=== PATIENT | male | born 1960 | race Caucasian/White ===

== ENCOUNTER 2018-05-22 20:18 | Emergency (ER) | payer MEDICARE, OTHER ==
[~2018-05-22] VITALS: Ht 167.6 cm; Wt 63.0 kg
[~2018-05-22 20:18] MED LIST: CLIN150C8 PO; CYCL-1 PO; NO HOME MEDS
[2018-05-22 21:00] LABS: BASOPHILS # (AUTO) 0.1 X10'3 (0-0.2); BASOPHILS % (AUTO) 0.8 % (0-1); EOSINOPHILS # (AUTO) 0.1 X10'3 (0-0.9); EOSINOPHILS % (AUTO) 1.6 % (0-6); HEMATOCRIT 38.5 % (42.0-52.0); HEMOGLOBIN 12.2 g/dl (14.0-17.9); LYMPHOCYTES # (AUTO) 2.5 X10'3 (1.1-4.8); LYMPHOCYTES % (AUTO) 32.1 % (21-51); MEAN CORPUSCULAR HEMOGLOBIN 20.5 PG (27.0-31.0); MEAN CORPUSCULAR HGB CONC 31.6 % (33.0-36.5); MEAN CORPUSCULAR VOLUME 64.8 FL (78-98); MEAN PLATELET VOLUME 7.9 FL (7.4-10.4); MONOCYTES # (AUTO) 0.5 X10'3 (0-0.9); MONOCYTES % (AUTO) 6.2 % (2-12); NEUTROPHILS # (AUTO) 4.7 X10'3 (1.8-7.7); NEUTROPHILS % (AUTO) 59.3 % (42-75); PLATELET COUNT 166 X10'3 (140-440); RED BLOOD COUNT 5.94 X10'6 (4.70-6.10); RED CELL DISTRIBUTION WIDTH 13.7 % (11.5-14.5); WHITE BLOOD COUNT 7.9 X10'3 (4.5-11.0)
[2018-05-22 21:06] LABS: PARTIAL THROMBOPLASTIN TIME 26 SECONDS (22-32)
[2018-05-22 21:10] LABS: ALANINE AMINOTRANSFERASE 46 U/L (12-78); ALBUMIN 3.4 G/DL (3.4-5.0); ALKALINE PHOSPHATASE 97 IU/L (46-116); ANION GAP 8 (8-16); ASPARTATE AMINO TRANSFERASE 23 U/L (10-37); BILIRUBIN,TOTAL 0.3 MG/DL (0.1-1.0); BLOOD UREA NITROGEN 14 MG/DL (7-18); BUN/CREATININE RATIO 14.4 (5.4-32.0); CALCIUM 8.5 MG/DL (8.5-10.1); CHLORIDE 102 MMOL/L (99-107); CREATININE 0.97 MG/DL (0.60-1.10); GLUCOSE 90 MG/DL (70-104); POTASSIUM 4.1 MMOL/L (3.5-5.1); SODIUM 139 MMOL/L (135-145); TOTAL CARBON DIOXIDE 28.6 MMOL/L (24-32); TOTAL PROTEIN 6.8 G/DL (6.4-8.2); eGFR 79 ML/MIN
[2018-05-22 21:16] LABS: ETHANOL < 0.010 GM/DL (0.0-0.010)
[2018-05-22 21:39] LABS: PLATELET ESTIMATE NORMAL
[2018-05-22 21:40] LABS: MICROCYTOSIS 2+; TARGET CELLS FEW; TEAR DROP CELLS FEW
[2018-05-22 21:41] LABS: HYPOCHROMASIA 1+
[2018-05-22] MEDS ORDERED: ketorolac trometh. 30mg/ml inj. IV ONE (21:50)
[2018-05-22] MEDS ORDERED: nitroGLYCERIN 0.4mg SUBLingual tab SL PRN (21:50)
[2018-05-22 22:04] VITALS: BP 111/68
== END 2018-05-22 22:12 | disposition left against medical advice (07) ==
LOC: ER 20:18
DX: R07.9 Chest pain, unspecified (principal); Z88.0 Allergy status to penicillin; Z79.899 Other long term (current) drug therapy; Z90.89 Acquired absence of other organs
CPT/HCPCS: 36415; 71045; 80053; 80320; 84484; 85025; 85610; 85730; 93005; 96374; 99285; J1885

== ENCOUNTER 2018-08-03 11:55 | Emergency (ER) | payer OTHER ==
[~2018-08-03] VITALS: Ht 167.6 cm; Wt 63.6 kg
[2018-08-03 12:09] VITALS: BP 90/61
[2018-08-03] MEDS ORDERED: acetaminophen 325mg tablet PO ONE (13:10)
[2018-08-03] MEDS ORDERED: HYDROcodone/acetaminophen 5mg/325mg tablet PO ONE (13:10)
[2018-08-03] MEDS ORDERED: ondansetron 4mg rapidly disintigrating tab PO ONE (13:10)
[2018-08-03] MEDS ORDERED: ketorolac trometh inj. 60 MG/2 ML VIAL IM ONE (13:10)
[2018-08-03] MEDS ORDERED: IBUP-1986 PO (13:11)
[2018-08-03] MEDS ORDERED: HYDR-3965 PO (13:11)
[2018-08-03] MEDS ORDERED: ACET-2615 PO (13:11)
== END 2018-08-03 13:37 | disposition home or self-care (01) ==
LOC: ER 11:56
DX: M25.571 Pain in right ankle and joints of right foot (principal); M25.572 Pain in left ankle and joints of left foot; G89.29 Other chronic pain; Z79.899 Other long term (current) drug therapy; Z88.0 Allergy status to penicillin; Z79.2 Long term (current) use of antibiotics
CPT/HCPCS: 96372; 99284; J1885

== ENCOUNTER 2018-10-24 10:32 | Emergency (ER) | payer MEDICARE, OTHER ==
[~2018-10-24] VITALS: Ht 167.6 cm; Wt 59.1 kg
[~2018-10-24 10:32] MED LIST changes: +IBUP-1986 PO
[2018-10-24 10:48] VITALS: BP 129/85
[2018-10-24] MEDS ORDERED: TRIA15OI2 TOP (13:20)
== END 2018-10-24 13:46 | disposition home or self-care (01) ==
LOC: ER 10:32
DX: K64.4 Residual hemorrhoidal skin tags (principal); G89.29 Other chronic pain; Z90.89 Acquired absence of other organs; Z98.890 Other specified postprocedural states; Z88.0 Allergy status to penicillin; Z79.899 Other long term (current) drug therapy
CPT/HCPCS: 99283

== ENCOUNTER 2019-07-21 11:50 | Observation (INO) | payer MEDICARE ==
[~2019-07-21] VITALS: Ht 167.6 cm; Wt 54.5 kg
[~2019-07-21 11:50] MED LIST changes: +TRIA15OI2 TOP
[2019-07-21] MEDS ORDERED: aspirin 81mg tab.chew PO ONE (12:20)
--- NOTE | 2019-07-21 12:20 | NUR ---
IV ACCESS ESTABLISHED,BEGIN FLUID BOLUS PER DR CARDONA VERBAL ORDER.
[2019-07-21 12:28] LABS: BASOPHILS % (AUTO) 0.4 % (0-1); EOSINOPHILS # (AUTO) 0.1 X10'3 (0-0.9); EOSINOPHILS % (AUTO) 0.8 % (0-6); HEMATOCRIT 41.7 % (42.0-52.0); HEMOGLOBIN 13.3 g/dl (14.0-17.9); LYMPHOCYTES # (AUTO) 1.6 X10'3 (1.1-4.8); LYMPHOCYTES % (AUTO) 20.5 % (21-51); MEAN CORPUSCULAR HEMOGLOBIN 20.6 PG (27.0-31.0); MEAN CORPUSCULAR HGB CONC 31.8 g/dL (33.0-36.5); MEAN CORPUSCULAR VOLUME 64.8 FL (78-98); MEAN PLATELET VOLUME 8.4 FL (7.4-10.4); MONOCYTES # (AUTO) 0.3 X10'3 (0-0.9); MONOCYTES % (AUTO) 4.4 % (2-12); NEUTROPHILS # (AUTO) 5.6 X10'3 (1.8-7.7); NEUTROPHILS % (AUTO) 73.9 % (42-75); PLATELET COUNT 214 X10'3 (140-440); RED BLOOD COUNT 6.43 X10'6 (4.70-6.10); RED CELL DISTRIBUTION WIDTH 15.1 % (11.5-14.5); WHITE BLOOD COUNT 7.6 X10'3 (4.5-11.0)
[2019-07-21 12:35] LABS: PARTIAL THROMBOPLASTIN TIME 27 SECONDS (22-32)
[2019-07-21 12:36] LABS: ALANINE AMINOTRANSFERASE 27 U/L (12-78); ALBUMIN 3.7 G/DL (3.4-5.0); ALBUMIN/GLOBULIN RATIO 0.9 (1.1-1.5); ALKALINE PHOSPHATASE 84 IU/L (46-116); ANION GAP 6 (8-16); ASPARTATE AMINO TRANSFERASE 22 U/L (10-37); BILIRUBIN,TOTAL 0.6 MG/DL (0.1-1.0); BLOOD UREA NITROGEN 15 MG/DL (7-18); BUN/CREATININE RATIO 15.2 (5.4-32.0); CALCIUM 9.6 MG/DL (8.5-10.1); CHLORIDE 103 MMOL/L (99-107); CREATININE 0.99 MG/DL (0.60-1.10); GLUCOSE 115 MG/DL (70-104); POTASSIUM 4.1 MMOL/L (3.5-5.1); SODIUM 140 MMOL/L (135-145); TOTAL CARBON DIOXIDE 30.8 MMOL/L (24-32); TOTAL PROTEIN 7.6 G/DL (6.4-8.2); eGFR 77 ML/MIN
[2019-07-21 12:44] LABS: MAGNESIUM 2.1 MG/DL (1.5-2.4)
--- NOTE | 2019-07-21 12:46 | NUR ---
PT REPORTS CP STARTED 2 DAYS AGO AT NIGHT WITH SHARP TIGHT CP, ALSO DIZZINESS AND SOB. PAIN RADIATED TO HIS LEFT ARM CAUSING NUMBNESS TO THE ARM. NOW HIS CHEST AND ARM ARE SORE.
[2019-07-21] MEDS ORDERED: normal saline 1000ml 1,000 ML IV ONE (12:50)
[2019-07-21 12:54] LABS: MICROCYTOSIS 2+; PLATELET ESTIMATE NORMAL
[2019-07-21 12:55] LABS: HYPOCHROMASIA 1+
[2019-07-21] MEDS ORDERED: normal saline 1000ML IV soln IVB ONE (13:30)
[2019-07-21] MEDS ORDERED: nitroGLYCERIN 0.4mg SUBLingual tab SL PRN (13:55)
[2019-07-21] MEDS ORDERED: HYDROcodone/acetaminophen 5mg/325mg tablet PO PRN (13:55)
[2019-07-21] MEDS ORDERED: ondansetron/PF 4mg/2ml inj IV PRN (13:55)
[2019-07-21] MEDS ORDERED: mag hydrox/Alum hydrox/simeth 30ml oral suspension PO PRN (13:55)
[2019-07-21] MEDS ORDERED: acetaminophen 325mg tablet PO PRN ×2 (13:55)
[2019-07-21] MEDS ORDERED: magnesium hydroxide 30ml (MOM) UD suspension PO PRN (13:55)
[2019-07-21] MEDS ORDERED: morphine 2 MG/ML inj. syringe IV PRN ×2 (13:55)
[2019-07-21 14:21] LABS: HEMOGLOBIN A1C 5.1 % (4.5-6.2)
[2019-07-21 14:27] VITALS: BP 120/81
--- NOTE | 2019-07-21 14:31 | NUR ---
REGISTRATION IS NOTIFIED REGARDING PT'S REQUEST FOR FAMILY TO STAY AT [facility] FOR INCURABLES.
[2019-07-21 15:05] LABS: D-DIMER 0.28 MG/L FEU (0-0.50)
[2019-07-22] MEDS ORDERED: aspirin 81mg tablet.DR PO SCH (08:00)
== END 2019-07-21 15:15 | disposition left against medical advice (07) ==
LOC: ER 11:50 → ED HOLD 13:51
PROVIDERS: ADMIT Internal Medicine; ATTEND Internal Medicine
DX: R06.02 Shortness of breath (principal); R07.89 Other chest pain; R42 Dizziness and giddiness; I25.2 Old myocardial infarction; G89.29 Other chronic pain; Z90.89 Acquired absence of other organs; Z79.899 Other long term (current) drug therapy; Z88.0 Allergy status to penicillin
CPT/HCPCS: 36415; 71045; 80053; 82948; 83036; 83735; 83880; 84484; 85025; 85379; 85610; 85730; 93005; 96360; 99284; G0378

== ENCOUNTER 2022-02-26 09:44 | Emergency (ER) | payer MEDICARE ==
[~2022-02-26] VITALS: Ht 167.6 cm; Wt 70.0 kg
[~2022-02-26 09:44] MED LIST changes: -CLIN150C8 PO; -CYCL-1 PO; -IBUP-1986 PO; -TRIA15OI2 TOP
[2022-02-26 10:06] VITALS: BP 111/79
[2022-02-26] MEDS ORDERED: ibuprofen tablet 400 MG TABLET PO ONE (10:55)
== END 2022-02-26 13:18 | disposition home or self-care (01) ==
LOC: ER 09:45
DX: S93.401A Sprain of unspecified ligament of right ankle, initial encounter (principal); Z88.0 Allergy status to penicillin; Z98.890 Other specified postprocedural states; W18.11XA Fall from or off toilet without subsequent striking against object, initial encounter; Y93.89 Activity, other specified; Y92.89 Other specified places as the place of occurrence of the external cause; Y99.8 Other external cause status
CPT/HCPCS: 73610; 99283; L4360